=== PATIENT | male | born 1965 | race Caucasian/White ===

== ENCOUNTER 2020-09-19 07:47 | Observation (INO) | payer BC ==
[2020-09-19] MEDS ORDERED: Labetalol 20 MG/4 ML Syringe IVPUSH ONE ×2 (08:03→08:54)
[2020-09-19 08:20] LABS: PTT,PARTIAL THROMBOPLSTIN TIME 25.1 SEC (24.5-32.8)
[2020-09-19 08:32] LABS: CHLORIDE,CL 105 mmol/L (98-107); SODIUM,NA 142 mmol/L (136-145)
[2020-09-19] MEDS ORDERED: Sodium Chloride 0.9% 10 ML Syringe FLUSH PRN (08:56)
--- NOTE | 2020-09-19 09:45 | EDM.PDOC ---
ED HPI GENERAL MEDICAL PROBLEM - General Chief Complaint: Chest Pain Stated Complaint: Chest Pain Time Seen by Provider: 09/19/20 08:20 Source of Information: Reports: Patient, Other ([facility] nurse/EMS) History Limitations: Reports: No Limitations - History of Present Illness INITIAL COMMENTS - FREE TEXT/NARRATIVE: Patient sent to ER for evaluation of left sided chest pain. Started shortly before 6am. Last time he had similar chest pain was 5 years ago. 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 Had some diaphoresis with pain. No nausea or SOB. No radiation of pain. Was placed on oxygen. O2 sats improved from 94% to 99%. Received 4 baby aspirin. [facility] by [facility] as appearing sweaty/fidgety/feliciano in color. Pulse weak in 80s-90s Received single Nitro from EMS with goal of reducing BP. Patient was pain-free at that time. Patient is smoker. Was off BP meds for approx 2.5 years due to being unemployed and uncovered by insurance. Only restarted them a week ago after being seen by Michelle at [facility]. Discussed smoking cessation at that time too. Originally from [place]. Moved in with his brother and [id number] and started employment at [facility] [employer] [facility]. Had recent increased stress over the weekend due to ex- (in process of divorce) coming to [place] and trying to convince patient that they should get back together. He had his special needs son living here in [place] who is special needs/causes stress and son went back to [place] with estranged . Sister in law says patient took his BP last night on a home BP machine and it was over 200 systolic. Treatments [employer]: Reports: Aspirin - Related Data Allergies Allergy/AdvReac Type Severity Reaction Status Date / Time No Known Allergies Allergy Verified 09/19/20 07:55 Home Meds: Home Meds Aspirin 81 mg PO DAILY 09/19/20 [History] Metoprolol Tartrate 25 mg PO Q12HR 09/19/20 [History] Past Medical History Cardiovascular History: Reports: Hypertension, [place], Stents, Other (See Below) Other Cardiovascular History: stent x 1 approx. 5 years ago. Genitourinary History: Reports: Renal Calculus - Past Surgical History Musculoskeletal Surgical History: Reports: None Social & Family History - Tobacco Use Tobacco Use Status *Q: Current Every Day Tobacco User Years of Tobacco use: 41 Packs/Tins Daily: 1.5 - Caffeine Use Caffeine Use: Reports: Coffee, Soda - Alcohol Use Days Per Week of Alcohol Use: 2 Number of Drinks Per Day: 2 Total Drinks Per Week: 4 Alcohol Use Comment: drinks only on weekend - Recreational Drug Use Recreational Drug Use: No ED ROS GENERAL - Review of Systems Review Of Systems: Comprehensive ROS is negative, except as noted in HPI. ED EXAM, GENERAL - Physical Exam Exam: See Below Exam Limited By: No Limitations General Appearance: Alert, WD/WN, No Apparent Distress Eye Exam: Bilateral Eye: EOMI, PERRL Ears: Normal External Exam, Normal Canal, Hearing Grossly Normal Nose: No: Nasal Deformity, Nasal Swelling, Nasal Drainage Throat/Mouth: Normal Lips, Normal Voice, No Airway Compromise Head: Atraumatic, Normocephalic Neck: Normal Inspection, Supple, Non-Tender, Full Range of Motion. No: Lymphadenopathy (L), Lymphadenopathy (R) Respiratory/Chest: No Respiratory Distress, Lungs Clear, Normal Breath Sounds, No Accessory Muscle Use, Chest Non-Tender Cardiovascular: Normal Peripheral Pulses, Regular Rate, Rhythm, No Edema, No Murmur GI/Abdominal: Normal Bowel Sounds, Soft, Non-Tender, No Distention (Male) Exam: Deferred Rectal (Males) Exam: Deferred Back Exam: Normal Inspection. No: CVA Tenderness (L), CVA Tenderness (R), Muscle Spasm Extremities: Normal Inspection, Normal Range of Motion, Non-Tender, No Pedal Edema, Normal Capillary Refill Neurological: Alert, Oriented, CN II-XII Intact, Normal Cognition, Normal Gait, No Motor/Sensory Deficits Psychiatric: Normal Affect, Normal Mood Skin Exam: Warm, Dry, Intact, Normal Color #1 Interpretation EKG Date: 09/19/20 Time: 07:55 Rhythm: NSR Rate (Beats/Min): 77 [place]: Normal P-Wave: Present QRS: Other (increased amplitute suggests LVH) ST-T: Other (Overall unremarkable except for mild morphology change V1) QT: Normal Comparison: NA - No Prior EKG Course - Vital Signs Last Recorded V/S: Last Vital Signs Temp 36.7 C 09/19/20 08:00 Pulse 67 09/19/20 09:34 Resp 16 09/19/20 09:34 BP 156/105 H 09/19/20 09:34 Pulse Ox 97 09/19/20 09:34 - Orders/Labs/Meds Orders: Active Orders 24 hr Category Date Time Status Cardiac Monitoring [RC] . DIRECTED Care 09/19/20 08:55 Active EKG Documentation Completion [RC] ASDIRECTED Care 09/19/20 07:58 Active Peripheral IV Care [RC] . DIRECTED Care 09/19/20 08:56 Active Chest 2V [CR] Stat Exams 09/19/20 08:01 Taken Sodium Chloride 0.9% [Saline Flush] Med 09/19/20 08:56 Active 10 ml FLUSH ASDIRECTED PRN Peripheral IV Insertion Adult [OM.PC] Routine Oth 09/19/20 08:56 Ordered Medication Orders Sodium Chloride (Sodium Chloride 0.9% 10 Ml Syringe) 10 ml FLUSH ASDIRECTED PRN PRN Reason: Keep Vein Open Last Admin: 09/19/20 08:58 Dose: 10 ml Documented by: NELDA Labs: Laboratory Tests 09/19/20 09/19/20 09/19/20 Range/Units 08:03 08:03 08:03 WBC 6.5 (4.0-10.2) K/uL RBC 5.14 (4.33-5.41) M/uL Hgb 14.9 (13.1-16.8) g/dL Hct 45.5 (39.0-49.0) % MCV 88.5 (84.0-98.0) fL MCH 29.0 (28.2-33.3) pg MCHC 32.7 (31.7-36.0) g/dL RDW 14.3 H (11.2-14.1) % Plt Count 217 (150-350) K/uL Neut % (Auto) 69.2 (45.0-80.0) % Lymph % (Auto) 20.4 (10.0-50.0) % [place] % (Auto) 7.4 (2.0-14.0) % Eos % (Auto) 2.8 (0.0-5.0) % Baso % (Auto) 0.2 (0.0-2.0) % Neut # (Auto) 4.48 (1.40-7.00) K/uL Lymph # (Auto) 1.32 (0.50-3.50) K/uL [place] # (Auto) 0.48 (0.00-1.00) K/uL Eos # (Auto) 0.18 (0.00-0.50) K/uL Baso # (Auto) 0.01 (0.00-0.20) K/uL PT (9.5-12.0) SEC INR APTT (24.5-32.8) SEC D-Dimer, Quantitative (0-400) ng/mL Sodium 142 (136-145) mmol/L Potassium 3.9 (3.5-5.1) mmol/L Chloride 105 (98-107) mmol/L Carbon Dioxide 27.6 (21.0-32.0) mmol/L BUN 13 (7-18) mg/dL Creatinine 1.22 H (0.51-1.17) mg/dL Est Cr Clr Drug Dosing TNP Estimated GFR (MDRD) > 60 mL/min Glucose 80 (70-99) mg/dL Lactic Acid 1.0 (0.4-2.0) mmol/L Calcium 8.0 L (8.5-10.1) mg/dL Magnesium 2.2 (1.8-2.4) mg/dL Total Bilirubin 0.4 (0.2-1.0) mg/dL AST 53 H (15-37) U/L ALT 72 (12-78) U/L Alkaline Phosphatase 106 (46-116) IU/L Creatine Kinase 498 H (26-308) U/L Creatine Kinase Index 0.9 (0.0-2.5) % CK-MB (CK-2) 4.70 H* (0.00-3.60) ng/mL Troponin I 0.007 (0.000-0.056) ng/mL NT-Pro-B Natriuret Pep 469 H (0-125) pg/mL Total Protein 7.4 (6.4-8.2) g/dL Albumin 3.8 (3.4-5.0) g/dL 09/19/20 09/19/20 Range/Units 08:03 08:03 WBC (4.0-10.2) K/uL RBC (4.33-5.41) M/uL Hgb (13.1-16.8) g/dL Hct (39.0-49.0) % MCV (84.0-98.0) fL MCH (28.2-33.3) pg MCHC (31.7-36.0) g/dL RDW (11.2-14.1) % Plt Count (150-350) K/uL Neut % (Auto) (45.0-80.0) % Lymph % (Auto) (10.0-50.0) % [place] % (Auto) (2.0-14.0) % Eos % (Auto) (0.0-5.0) % Baso % (Auto) (0.0-2.0) % Neut # (Auto) (1.40-7.00) K/uL Lymph # (Auto) (0.50-3.50) K/uL [place] # (Auto) (0.00-1.00) K/uL Eos # (Auto) (0.00-0.50) K/uL Baso # (Auto) (0.00-0.20) K/uL PT 9.6 (9.5-12.0) SEC INR 1.0 APTT 25.1 (24.5-32.8) SEC D-Dimer, Quantitative 172 (0-400) ng/mL Sodium (136-145) mmol/L Potassium (3.5-5.1) mmol/L Chloride (98-107) mmol/L Carbon Dioxide (21.0-32.0) mmol/L BUN (7-18) mg/dL Creatinine (0.51-1.17) mg/dL Est Cr Clr Drug Dosing Estimated GFR (MDRD) mL/min Glucose (70-99) mg/dL Lactic Acid (0.4-2.0) mmol/L Calcium (8.5-10.1) mg/dL Magnesium (1.8-2.4) mg/dL Total Bilirubin (0.2-1.0) mg/dL AST (15-37) U/L ALT (12-78) U/L Alkaline Phosphatase (46-116) IU/L Creatine Kinase (26-308) U/L Creatine Kinase Index (0.0-2.5) % CK-MB (CK-2) (0.00-3.60) ng/mL Troponin I (0.000-0.056) ng/mL NT-Pro-B Natriuret Pep (0-125) pg/mL Total Protein (6.4-8.2) g/dL Albumin (3.4-5.0) g/dL Meds: Medications Generic Name Dose Route Start Last Admin Trade Name Alexey PRN Reason Stop Dose Admin Sodium Chloride 10 ml 09/19/20 08:56 09/19/20 08:58 Sodium Chloride 0.9% 10 Ml Syringe FLUSH 10 ml ASDIRECTED PRN Administration Keep Vein Open Discontinued Medications Generic Name Dose Route Start Last Admin Trade Name Alexey PRN Reason Stop Dose Admin Labetalol HCl 20 mg 09/19/20 08:03 09/19/20 08:07 Labetalol 20 Mg/4 Ml Syringe IVPUSH 09/19/20 08:04 20 mg ONETIME ONE Administration Protocol Labetalol HCl 20 mg 09/19/20 08:54 09/19/20 08:57 Labetalol 20 Mg/4 Ml Syringe IVPUSH 09/19/20 08:55 20 mg ONETIME ONE Administration Protocol - Radiology Interpretation Free Text/Narrative:: Chest xray unremarkable. - Re-Assessments/Exams Free Text/Narrative Re-Assessment/Exam: 09/19/20 10:01 Patient remained pain-free in ER. Received Labetolol for BP. Ck and CKMB elevated. Troponin normal. Call placed to [facility]. Reviewed patient with Cardiology/Jayson GROSSMAN. He did not feel that patient needs transfer to higher LOC at this time and can instead be admitted observation here at our facility. He did indicate that pt needs to be seen by Cardiology as outpatient if r/o W[place] workup is normal. Patient likely needs updated cardiac cath study. Departure - Departure Time of Disposition: 09:38 Disposition: Refer to Observation Clinical Impression: Chest pain Qualifiers: Chest pain type: unspecified Qualified Code(s): R07.9 - Chest pain, unspecified - Discharge Information *PRESCRIPTION DRUG MONITORING PROGRAM REVIEWED*: Not Applicable *COPY OF PRESCRIPTION DRUG MONITORING REPORT IN PATIENT SIDRA: Not Applicable Referrals: Zara Santiago PA [Primary Care Provider] - Sepsis Event Note (ED) - Evaluation Sepsis Screening Result: No Definite Risk - Focused Exam Vital Signs: Vital Signs Temp Pulse Resp BP Pulse Ox 09/19/20 09:34 67 16 156/105 H 97 03/24/21 09:20 72 21 H 137/98 H 97 09/19/20 09:05 70 18 144/93 H 97 09/19/20 08:51 73 20 154/106 H 98 09/19/20 08:36 73 20 160/102 H 97 09/19/20 08:22 74 18 161/109 H 98 09/19/20 08:15 78 16 149/109 H 99 09/19/20 08:00 36.7 C 78 20 171/112 H 97 - Problem List & Annotations (1) Chest pain SNOMED Code(s): 65037697 Code(s): R07.9 - CHEST PAIN, UNSPECIFIED Status: Acute Priority: High Current Visit: Yes Onset Date: 09/19/20 Annotation/Comment:: Left sided chest pain without associated radiation of pain. Resolved when placed on oxygen. Initial troponin negative and EKG overall unremarkable. Reviewed patient with , Deputy K 9 at [facility]. OK to admit observation here for serial troponins. If workup is negative, he recommends setting up Cardiology consult and angiogram as outpatient. Qualifiers: Chest pain type: unspecified Qualified Code(s): R07.9 - Chest pain, unspecified (2) CAD (coronary artery disease) SNOMED Code(s): 88476150 Code(s): I25.10 - ATHSCL HEART DISEASE OF [place] CORONARY ARTERY W/O ANG PCTRS Status: Chronic Priority: High Current Visit: Yes Annotation/Comment:: History of WY approximately 5 years ago which required stent. Qualifiers: [place] vs. transplanted heart: [place] heart Associated angina: angina presence unspecified (3) Smoker SNOMED Code(s): 58136825 Code(s): F17.200 - NICOTINE DEPENDENCE, UNSPECIFIED, UNCOMPLICATED Status: Chronic Priority: Medium Current Visit: Yes Annotation/Comment:: 3/4 pack a day smoker. Is working with primary provider regarding smoking cessation. (4) HTN (hypertension) SNOMED Code(s): 18169608 Code(s): I10 - ESSENTIAL (PRIMARY) HYPERTENSION Status: Chronic Priority: High Current Visit: Yes Annotation/Comment:: History of HTN that required multiple medications for good control in past. Was off of them for 2 1/2 years due to lack of insurance coverage. Restarted on Metoprolol last week. Significantly elevated when checked last night at home. At [facility] today noted to be 223/141 and 206/140. Labetalol given in ER with good improvement. Observe trends closely. Qualifiers: Hypertension type: essential hypertension Qualified Code(s): I10 - Essential (primary) hypertension - Problem List Review Problem List Initiated/Reviewed/Updated: Yes - My Orders Last 24 Hours: My Active Orders 09/19/20 07:58 EKG Documentation Completion [RC] ASDIRECTED 09/19/20 08:01 Chest 2V [CR] Stat 09/19/20 08:55 Cardiac Monitoring [RC] . DIRECTED 09/19/20 08:56 Peripheral IV Care [RC] . DIRECTED Sodium Chloride 0.9% [Saline Flush] 10 ml FLUSH ASDIRECTED PRN Peripheral IV Insertion Adult [OM.PC] Routine - Assessment/Plan Admission H&P: Please use this note as an admission H&P Last 24 Hours: My Active Orders 09/19/20 07:58 EKG Documentation Completion [RC] ASDIRECTED 09/19/20 08:01 Chest 2V [CR] Stat 09/19/20 08:55 Cardiac Monitoring [RC] . DIRECTED 09/19/20 08:56 Peripheral IV Care [RC] . DIRECTED Sodium Chloride 0.9% [Saline Flush] 10 ml FLUSH ASDIRECTED PRN Peripheral IV Insertion Adult [OM.PC] Routine Assessment:: as above Plan: as above. Stable and suitable for general supervision. Serial Troponins/Telemetry upon admission. to assume care in AM.
[2020-09-19] MEDS ORDERED: Nitroglycerin 0.4 MG Tab.SL SL PRN (10:00)
[2020-09-19] MEDS ORDERED: Acetaminophen 325 MG Tab PO PRN (10:00)
[2020-09-19] MEDS ORDERED: Metoprolol Tartrate 50 MG Tab PO ONE (10:14)
[2020-09-19] MEDS ORDERED: cloNIDine 0.1 MG Tab PO ONE ×2 (10:18→16:57)
[2020-09-19] MEDS ORDERED: Hydrochlorothiazide 25 MG Tab PO ONE (10:25)
[2020-09-19] MEDS ORDERED: Losartan 50 MG Tab PO SCH (10:30)
[2020-09-19] MEDS: Nicotine 21 MG/24 Hr Patch TRDERM SCH (12:39)
--- NOTE | 2020-09-19 15:09 | PCM.SN.2 ---
- Free Text/Narrative Note: Recheck of troponin and EKG at 1400 show no changes. Patient had brief left sided chest pain that was reproduced by palpation over left anterior chest. Resolved on own. EKG at 13:47 showed NSR with similar morphology as one from 0800.
[2020-09-19] MEDS ORDERED: FLU Vacc QS2020-21 36MOS UP/PF 60 MCG/0.5 ML Syringe IM ONE (21:00)
--- NOTE | 2020-09-19 22:48 | PCM.SN.2 ---
- Free Text/Narrative Note: Metoprolol discontinued as it is not a first line agent for hypertension. Combination of Clonidine, Losartan, and HCTZ used after Obs admission. Patient's most recent BP at 1999 of 149/98 is best BP obtained so far during stay.
[2020-09-20] MEDS ORDERED: Losartan 50 MG Tab PO ONE (06:09)
[2020-09-20] MEDS ORDERED: cloNIDine 0.1 MG Tab PO ONE (06:10)
[2020-09-20 07:44] LABS: CHLORIDE,CL 105 mmol/L (98-107); SODIUM,NA 140 mmol/L (136-145)
[2020-09-20] MEDS: Nicotine 21 MG/24 Hr Patch TRDERM SCH (07:58)
[2020-09-20] MEDS ORDERED: Metoprolol Succinate 25 MG Tab.ER PO SCH (08:00)
[2020-09-20] MEDS ORDERED: Hydrochlorothiazide 25 MG Tab PO SCH (08:00)
[2020-09-20] MEDS ORDERED: Losartan 50 MG Tab PO SCH (08:00)
[2020-09-20] MEDS ORDERED: Remove Patch NICOTINE PATCH TRDERM SCH (08:00)
[2020-09-20] MEDS ORDERED: cloNIDine 0.1 MG Tab PO SCH (08:00)
[2020-09-20 09:51] LABS: HEMOGLOBIN A1C 5.6 % (4.3-5.7)
--- NOTE | 2020-09-20 09:53 | PCM.DCSUM1 ---
Discharge Summary - Hospital Course HPI Initial Comments: See emergency room note/mention H&P Brief History: See emergency room note/mention H&P Diagnosis: Stroke: No Modified Houston Scale: No Symptoms at All Modified Houston Scale Score: 0 - Discharge Data Discharge Date: 09/20/20 Discharge Disposition: DC/Tfer to Acute Hospital 02 Condition: Fair - Referral to Home Health Primary Care Physician: SANDRO Burrell - Discharge Diagnosis/Problem(s) (1) CAD (coronary artery disease) SNOMED Code(s): 19366563 ICD Code: I25.10 - ATHSCL HEART DISEASE OF [place] CORONARY ARTERY W/O ANG PCTRS Status: Chronic Priority: High Current Visit: Yes Problem Details: Telephone consultation at 9:[address] Anderson, hospitalist at [facility], who does accept the patient for direct admission and further cardiac work-up and cardiology consultation, with no further treatment recommendations given. Refractory coronary artery disease with breakthrough chest pain and anginal episodes at about 1 PM yesterday and between 46 AM this morning with clonidine given at that time. Note new progressive inferior wall EKG changes, including progression of his nonspecific ST changes and T wave inversion into lead 2 as below. No chest pain or anginal type symptoms prior to discharge with stable/improved vital signs and clinical exam prior to patient's transfer. Ambulance transfer with strap buckler accompaniment. Note some delay in patient transfer without sequelae secondary to need for COVID-19 test, which was negative, etc. prior to transfer. Patient does have a history of RI and PTCA/stent x1 approximately 5 years ago. He is a somewhat poor historian. Multiple risk factors including male sex, tobacco use, and strong family history with his paternal grandfather, father, and one paternal uncle with fatal MIs all prior to their 50th birthday. He does not know his cholesterol status, which could not be conducted this morning secondary to his n.p.o. status. Glycosylated hemoglobin was performed this morning with level of 5.6% on 09/20 despite mildly elevated glucose this morning. Patient is agreement to heart catheterization and lifting of his previous NO CODE STATUS with patient full code at this time. Chest pain protocol was initiated immediately upon patient's arrival to the emergency room by [facility] physician. Qualifiers: Coronary Disease-Associated Artery/Lesion type: [place] artery [place] vs. transplanted heart: [place] heart Associated angina: with stable angina Qualified Code(s): I25.118 - Atherosclerotic heart disease of [place] coronary artery with other forms of angina pectoris (2) HTN (hypertension) SNOMED Code(s): 51541479 ICD Code: I10 - ESSENTIAL (PRIMARY) HYPERTENSION Status: Chronic Priority: High Current Visit: Yes Problem Details: Significantly refractory hypertension during this hospitalization with maximum blood pressure of 179/109 this morning, however subsequently improved to 131/93 after clonidine was given as below. Multiple medication adjustments required during this hospitalization with patient previously receiving IV Normodyne, oral Lopressor, Cozaar, hydrochlorothiazide, and multiple doses of clonidine, including at about 6 AM this morning. No visual changes, neurological deficits, etc. The patient does have a long history of HTN that required multiple medications for good control in past with previous medication noncompliance during the last 2 1/2 years due to lack of insurance coverage. He did restart Lopressor last week. Significantly elevated blood pressures during his observation status. At [facility] today, where the patient works, his blood pressure was noted to be 223/141 and 206/140 by the [facility] nurse. Labetalol given in ER as above with initial good improvement prior to placement in observation status. Continue to observe closely by accepting providers. Note return of patient's elevated blood pressure shortly prior to patient transfer with Nitropaste therapy initiated both for blood pressure control and as cardiac prophylaxis. Qualifiers: Hypertension type: essential hypertension Qualified Code(s): I10 - Essential (primary) hypertension (3) Elevated CK SNOMED Code(s): 442711221 ICD Code: R74.8 - ABNORMAL LEVELS OF OTHER SERUM ENZYMES Status: Acute Priority: High Current Visit: Yes Onset Date: 09/19/20 Problem Details: CK and CK MB elevation on admission with no evidence of rhabdomyolysis. Note normal cardiac index on admission despite EKG changes as above. CK and CK-MB are normal today. (4) CHF (congestive heart failure) SNOMED Code(s): 91661640 ICD Code: I50.9 - HEART FAILURE, UNSPECIFIED Status: Acute Priority: High Current Visit: Yes Onset Date: 09/20/20 Problem Details: Note borderline CHF by chest x-ray and clinical exam with hydrochlorothiazide in affect. Cardiology consultation by accepting providers with probable heart catheterization versus other cardiac evaluations, including Cardiolite scan, echocardiogram, etc. depending on his clinical course and prior evaluation. Note mild to moderately elevated BNP on admission, which was improved today. Qualifiers: Heart failure type: unspecified Heart failure chronicity: acute Qualified Code(s): I50.9 - Heart failure, unspecified (5) Tobacco abuse counseling SNOMED Code(s): 719781329, 145612993, 814278830 ICD Code: Z71.6 - TOBACCO ABUSE COUNSELING Status: Chronic Priority: Medium Current Visit: Yes Problem Details: Tobacco cessation strongly encouraged with information to be provided at discharge by the accepting providers. (6) Peptic reflux disease SNOMED Code(s): 227215812 ICD Code: K21.9 - GASTRO-ESOPHAGEAL REFLUX DISEASE WITHOUT ESOPHAGITIS Status: Acute Priority: Medium Current Visit: Yes Onset Date: ~09/19/20 Problem Details: Heartburn type symptoms prior to admission. Nonsymptomatic at this time. Further work-up depending on his cardiac status, clinical symptoms, etc. (7) Osteoarthritis SNOMED Code(s): 698660417 ICD Code: M19.90 - UNSPECIFIED OSTEOARTHRITIS, UNSPECIFIED SITE Status: Chronic Priority: Medium Current Visit: Yes Problem Details: Stable by history Qualifiers: Osteoarthritis location: multiple joints Osteoarthritis type: primary Qualified Code(s): M89.49 - Other hypertrophic osteoarthropathy, multiple sites (8) COPD (chronic obstructive pulmonary disease) SNOMED Code(s): 97984250 ICD Code: J44.9 - CHRONIC OBSTRUCTIVE PULMONARY DISEASE, UNSPECIFIED Status: Chronic Priority: Medium Current Visit: Yes Problem Details: COPD by chest x-ray with no current medical therapy. No current tobacco use history as above. Consider PFTs depending on his clinical course. Tobacco cessation encouraged as above. Qualifiers: COPD type: emphysema Emphysema type: panlobular Qualified Code(s): J43.1 - Panlobular emphysema (9) Hypoalbuminemia SNOMED Code(s): 253087324 ICD Code: E88.09 - [facility] DISORDERS OF PLASMA-PROTEIN METABOLISM, NEC Status: Acute Priority: Medium Current Visit: Yes Onset Date: 09/20/20 Problem Details: Observe for now. Normal on admission. (10) LFT elevation SNOMED Code(s): 854702746 ICD Code: R79.89 - OTHER SPECIFIED ABNORMAL FINDINGS OF BLOOD CHEMISTRY Status: Acute Priority: Medium Current Visit: Yes Onset Date: 09/20/20 Problem Details: Possibly secondary to mild CHF. Additional possibility of fatty liver with consideration of fasting lipid profile, further work-up, etc. by accepting providers depending on his clinical course. - Patient Summary/Data Operative Procedure(s) Performed: None Complications: None Consults: Hospitalist as above with probable cardiology consultation by accepting providers. Labs Pending at D/C: Final chest x-ray report from 09/19/2020. Recommended Follow-up Testing/Procedures: Further cardiac work-up as above Planned Operative Procedure(s) after DC: Possible heart catheterization with PT CA/stent placement Hospital Course: Patient was placed in observation status by [facility] physician from the emergency room with persistent breakthrough chest pain and uncontrolled hypertension throughout his hospitalization in this facility. Note progressive inferior wall cardiac changes during this hospitalization requiring hospital transfer as above. No other complications during this hospitalization. - Patient Instructions Diet: NPO Activity: Bedrest Driving: May Drive Today Showering/Bathing: No Showering Notify Provider of: Increased Pain, Nausea and/or Vomiting Other/Special Instructions: Ambulance transfer as above. Patient will be kept n.p.o., although he did have breakfast this morning. - Discharge Plan *PRESCRIPTION DRUG MONITORING PROGRAM REVIEWED*: Not Applicable *COPY OF PRESCRIPTION DRUG MONITORING REPORT IN PATIENT SIDRA: Not Applicable Home Medications: Home Meds Aspirin 81 mg PO DAILY 09/19/20 [History] Metoprolol Tartrate 25 mg PO Q12HR 09/19/20 [History] Oxygen Therapy Mode: Room Air Forms: ED Department Discharge, Interfacility Transfer EMTALA Referrals: Zara Santiago PA [Primary Care Provider] - - Discharge Summary/Plan Comment DC Time >30 min.: Yes (Coordination of care ) Discharge Summary/Plan Comment: As above. Extensive precautions were given to the patient, who is in agreement with the treatment plan. Ambulance transfer to [facility] in [place] as above. - General Info Date of Service: 09/20/20 Subjective Update: Intermittent breakthrough chest pain as above Functional Status: Reports: Pain Controlled, Tolerating Diet, Ambulating, Urinating. Denies: New Symptoms, Incentive Spirometry Numeric/FACES Score: 0 - Review of Systems General: Reports: No Symptoms. Denies: Fever, Weakness, Fatigue, Malaise, Chills, Night Sweats, Appetite (Good at breakfast this morning), Other HEENT: Reports: No Symptoms. Denies: Dysphasia, Ear Pain, Eye Pain, Headaches, Post Nasal Drip, Sinus Congestion, Sore Throat, Rhinitis, Visual Changes Pulmonary: Reports: No Symptoms. Denies: Shortness of Breath, Pleuritic Chest Pain, Cough, Sputum, Hemoptysis, Wheezing Cardiovascular: Reports: Chest Pain (Breakthrough during his swing bed care but not currently). Denies: Palpitations, Dyspnea on Exertion, Orthopnea, PND, Edema, Lightheadedness Gastrointestinal: Reports: No Symptoms, Other (No bowel movement to this point). Denies: Abdominal Pain, Constipation, Decreased Appetite, Diarrhea, Difficulty Swallowing, Flatus, Hematochezia, Melena, Nausea, Vomiting Genitourinary: Reports: No Symptoms. Denies: Dysuria, Frequency, Burning, Pain, Urgency, Incontinence, Hematuria, Retention, Flank Pain Musculoskeletal: Reports: No Symptoms. Denies: Neck Pain, Shoulder Pain, Arm Pain, Back Pain, Leg Pain Skin: Reports: No Symptoms. Denies: Diaphoresis, Bruising Neurological: Reports: No Symptoms. Denies: Confusion, Dizziness, Headache, Numbness, Paresthesia, Pre-Existing Deficit, Seizure, Tingling, Weakness Psychiatric: Reports: No Symptoms. Denies: Confusion, Depression, Anxiety, Agitation, Cravings, Hallucinations - Patient Data Vitals - Most Recent: Last Vital Signs Temp 36.6 C 09/20/20 07:08 Pulse 65 09/20/20 09:00 Resp 14 09/20/20 07:08 BP 131/93 H 09/20/20 09:00 Pulse Ox 97 09/20/20 07:08 Vital Signs - 24 hr 09/19/20 09/19/20 09/19/20 16:00 17:14 20:00 Temperature [ 36.8 C 36.9 C Temporal] Pulse, 69 73 Peripheral [ Pulse Oximetry] Respiratory 14 20 Rate Blood Pressure 152/106 H Blood Pressure [Left Upper Arm ] Blood Pressure 152/106 H 149/98 H [Right Upper Arm] O2 Sat by Pulse 96 94 L Oximetry 09/20/20 09/20/20 09/20/20 00:00 04:00 05:03 Temperature [ 36.3 C 36.2 C Temporal] Pulse, 64 56 L 59 L Peripheral [ Pulse Oximetry] Respiratory 16 16 Rate Blood Pressure Blood Pressure [Left Upper Arm ] Blood Pressure 155/104 H 164/109 H 157/104 H [Right Upper Arm] O2 Sat by Pulse 95 97 Oximetry 09/20/20 09/20/20 09/20/20 06:16 07:08 07:57 Temperature [ 36.6 C Temporal] Pulse, 67 Peripheral [ Pulse Oximetry] Respiratory 14 Rate Blood Pressure 174/114 H 170/109 H Blood Pressure [Left Upper Arm ] Blood Pressure 170/109 H [Right Upper Arm] O2 Sat by Pulse 97 Oximetry 09/20/20 09/20/20 09/20/20 07:59 09:00 11:49 Temperature [ 36.7 C Temporal] Pulse, 65 68 Peripheral [ Pulse Oximetry] Respiratory 16 Rate Blood Pressure 170/109 H Blood Pressure 131/93 H 143/104 H [Left Upper Arm ] Blood Pressure [Right Upper Arm] O2 Sat by Pulse 95 Oximetry Weight - Most Recent: 94.211 kg Imaging Impressions - Last 24 hrs: monitoring tech shows normal sinus rhythm with average heart rate in the 60-70s with no ectopy or arrhythmia. Note occasional borderline bradycardia at time of Normodyne administration. Chest x-ray, PA and lateral, from 09/19/2020 shows evidence of mild pulmonary obstructive disease with probable pulmonary hypertension and/or mild centralized CHF. No significant cardiomegaly with mild prominence of the proximal aortic arch. No pulmonary infiltrates, pneumothorax, etc. Mild osteoarthritic changes in the thoracic spine. Lab Results - Last 24 hrs: Laboratory Results - last 24 hr 09/19/20 09/19/20 09/20/20 Range/Units 13:47 19:26 07:12 WBC (4.0-10.2) K/uL RBC (4.33-5.41) M/uL Hgb (13.1-16.8) g/dL Hct (39.0-49.0) % MCV (84.0-98.0) fL MCH (28.2-33.3) pg MCHC (31.7-36.0) g/dL RDW (11.2-14.1) % Plt Count (150-350) K/uL Neut % (Auto) (45.0-80.0) % Lymph % (Auto) (10.0-50.0) % [place] % (Auto) (2.0-14.0) % Eos % (Auto) (0.0-5.0) % Baso % (Auto) (0.0-2.0) % Neut # (Auto) (1.40-7.00) K/uL Lymph # (Auto) (0.50-3.50) K/uL [place] # (Auto) (0.00-1.00) K/uL Eos # (Auto) (0.00-0.50) K/uL Baso # (Auto) (0.00-0.20) K/uL Sodium (136-145) mmol/L Potassium (3.5-5.1) mmol/L Chloride (98-107) mmol/L Carbon Dioxide (21.0-32.0) mmol/L BUN (7-18) mg/dL Creatinine (0.51-1.17) mg/dL Est Cr Clr Drug Dosing mL/min Estimated GFR (MDRD) mL/min Glucose (70-99) mg/dL Calcium (8.5-10.1) mg/dL Total Bilirubin (0.2-1.0) mg/dL AST (15-37) U/L ALT (12-78) U/L Alkaline Phosphatase (46-116) IU/L Troponin I 0.007 0.003 0.007 (0.000-0.056) ng/mL Total Protein (6.4-8.2) g/dL Albumin (3.4-5.0) g/dL 09/20/20 09/20/20 Range/Units 07:12 07:12 WBC 6.0 (4.0-10.2) K/uL RBC 5.21 (4.33-5.41) M/uL Hgb 15.0 (13.1-16.8) g/dL Hct 45.6 (39.0-49.0) % MCV 87.5 (84.0-98.0) fL MCH 28.8 (28.2-33.3) pg MCHC 32.9 (31.7-36.0) g/dL RDW 13.9 (11.2-14.1) % Plt Count 200 (150-350) K/uL Neut % (Auto) 74.4 (45.0-80.0) % Lymph % (Auto) 15.7 (10.0-50.0) % [place] % (Auto) 6.7 (2.0-14.0) % Eos % (Auto) 3.0 (0.0-5.0) % Baso % (Auto) 0.2 (0.0-2.0) % Neut # (Auto) 4.46 (1.40-7.00) K/uL Lymph # (Auto) 0.94 (0.50-3.50) K/uL [place] # (Auto) 0.40 (0.00-1.00) K/uL Eos # (Auto) 0.18 (0.00-0.50) K/uL Baso # (Auto) 0.01 (0.00-0.20) K/uL Sodium 140 (136-145) mmol/L Potassium 3.8 (3.5-5.1) mmol/L Chloride 105 (98-107) mmol/L Carbon Dioxide 25.5 (21.0-32.0) mmol/L BUN 14 (7-18) mg/dL Creatinine 1.16 (0.51-1.17) mg/dL Est Cr Clr Drug Dosing 78.98 mL/min Estimated GFR (MDRD) > 60 mL/min Glucose 130 H (70-99) mg/dL Calcium 9.0 (8.5-10.1) mg/dL Total Bilirubin 0.4 (0.2-1.0) mg/dL AST 24 (15-37) U/L ALT 52 (12-78) U/L Alkaline Phosphatase 103 (46-116) IU/L Troponin I (0.000-0.056) ng/mL Total Protein 6.7 (6.4-8.2) g/dL Albumin 3.3 L (3.4-5.0) g/dL Laboratory Tests 09/19/20 09/19/20 09/19/20 Range/Units 08:03 08:03 08:03 WBC 6.5 (4.0-10.2) K/uL RBC 5.14 (4.33-5.41) M/uL Hgb 14.9 (13.1-16.8) g/dL Hct 45.5 (39.0-49.0) % MCV 88.5 (84.0-98.0) fL MCH 29.0 (28.2-33.3) pg MCHC 32.7 (31.7-36.0) g/dL RDW 14.3 H (11.2-14.1) % Plt Count 217 (150-350) K/uL Neut % (Auto) 69.2 (45.0-80.0) % Lymph % (Auto) 20.4 (10.0-50.0) % [place] % (Auto) 7.4 (2.0-14.0) % Eos % (Auto) 2.8 (0.0-5.0) % Baso % (Auto) 0.2 (0.0-2.0) % Neut # (Auto) 4.48 (1.40-7.00) K/uL Lymph # (Auto) 1.32 (0.50-3.50) K/uL [place] # (Auto) 0.48 (0.00-1.00) K/uL Eos # (Auto) 0.18 (0.00-0.50) K/uL Baso # (Auto) 0.01 (0.00-0.20) K/uL PT (9.5-12.0) SEC INR APTT (24.5-32.8) SEC D-Dimer, Quantitative (0-400) ng/mL Sodium 142 (136-145) mmol/L Potassium 3.9 (3.5-5.1) mmol/L Chloride 105 (98-107) mmol/L Carbon Dioxide 27.6 (21.0-32.0) mmol/L BUN 13 (7-18) mg/dL Creatinine 1.22 H (0.51-1.17) mg/dL Est Cr Clr Drug Dosing TNP Estimated GFR (MDRD) > 60 mL/min Glucose 80 (70-99) mg/dL Hemoglobin A1c (4.3-5.7) % Lactic Acid 1.0 (0.4-2.0) mmol/L Calcium 8.0 L (8.5-10.1) mg/dL Magnesium 2.2 (1.8-2.4) mg/dL Total Bilirubin 0.4 (0.2-1.0) mg/dL AST 53 H (15-37) U/L ALT 72 (12-78) U/L Alkaline Phosphatase 106 (46-116) IU/L Creatine Kinase 498 H (26-308) U/L Creatine Kinase Index 0.9 (0.0-2.5) % CK-MB (CK-2) 4.70 H* (0.00-3.60) ng/mL Troponin I 0.007 (0.000-0.056) ng/mL NT-Pro-B Natriuret Pep 469 H (0-125) pg/mL Total Protein 7.4 (6.4-8.2) g/dL Albumin 3.8 (3.4-5.0) g/dL SARS-CoV-2 RNA (JESUS) (NEGATIVE) 09/19/20 09/19/20 09/19/20 Range/Units 08:03 08:03 13:47 WBC (4.0-10.2) K/uL RBC (4.33-5.41) M/uL Hgb (13.1-16.8) g/dL Hct (39.0-49.0) % MCV (84.0-98.0) fL MCH (28.2-33.3) pg MCHC (31.7-36.0) g/dL RDW (11.2-14.1) % Plt Count (150-350) K/uL Neut % (Auto) (45.0-80.0) % Lymph % (Auto) (10.0-50.0) % [place] % (Auto) (2.0-14.0) % Eos % (Auto) (0.0-5.0) % Baso % (Auto) (0.0-2.0) % Neut # (Auto) (1.40-7.00) K/uL Lymph # (Auto) (0.50-3.50) K/uL [place] # (Auto) (0.00-1.00) K/uL Eos # (Auto) (0.00-0.50) K/uL Baso # (Auto) (0.00-0.20) K/uL PT 9.6 (9.5-12.0) SEC INR 1.0 APTT 25.1 (24.5-32.8) SEC D-Dimer, Quantitative 172 (0-400) ng/mL Sodium (136-145) mmol/L Potassium (3.5-5.1) mmol/L Chloride (98-107) mmol/L Carbon Dioxide (21.0-32.0) mmol/L BUN (7-18) mg/dL Creatinine (0.51-1.17) mg/dL Est Cr Clr Drug Dosing Estimated GFR (MDRD) mL/min Glucose (70-99) mg/dL Hemoglobin A1c (4.3-5.7) % Lactic Acid (0.4-2.0) mmol/L Calcium (8.5-10.1) mg/dL Magnesium (1.8-2.4) mg/dL Total Bilirubin (0.2-1.0) mg/dL AST (15-37) U/L ALT (12-78) U/L Alkaline Phosphatase (46-116) IU/L Creatine Kinase (26-308) U/L Creatine Kinase Index (0.0-2.5) % CK-MB (CK-2) (0.00-3.60) ng/mL Troponin I 0.007 (0.000-0.056) ng/mL NT-Pro-B Natriuret Pep (0-125) pg/mL Total Protein (6.4-8.2) g/dL Albumin (3.4-5.0) g/dL SARS-CoV-2 RNA (JESUS) (NEGATIVE) 09/19/20 09/20/20 09/20/20 Range/Units 19:26 07:12 07:12 WBC (4.0-10.2) K/uL RBC (4.33-5.41) M/uL Hgb (13.1-16.8) g/dL Hct (39.0-49.0) % MCV (84.0-98.0) fL MCH (28.2-33.3) pg MCHC (31.7-36.0) g/dL RDW (11.2-14.1) % Plt Count (150-350) K/uL Neut % (Auto) (45.0-80.0) % Lymph % (Auto) (10.0-50.0) % [place] % (Auto) (2.0-14.0) % Eos % (Auto) (0.0-5.0) % Baso % (Auto) (0.0-2.0) % Neut # (Auto) (1.40-7.00) K/uL Lymph # (Auto) (0.50-3.50) K/uL [place] # (Auto) (0.00-1.00) K/uL Eos # (Auto) (0.00-0.50) K/uL Baso # (Auto) (0.00-0.20) K/uL PT (9.5-12.0) SEC INR APTT (24.5-32.8) SEC D-Dimer, Quantitative (0-400) ng/mL Sodium 140 (136-145) mmol/L Potassium 3.8 (3.5-5.1) mmol/L Chloride 105 (98-107) mmol/L Carbon Dioxide 25.5 (21.0-32.0) mmol/L BUN 14 (7-18) mg/dL Creatinine 1.16 (0.51-1.17) mg/dL Est Cr Clr Drug Dosing 78.98 Estimated GFR (MDRD) > 60 mL/min Glucose 130 H (70-99) mg/dL Hemoglobin A1c (4.3-5.7) % Lactic Acid (0.4-2.0) mmol/L Calcium 9.0 (8.5-10.1) mg/dL Magnesium (1.8-2.4) mg/dL Total Bilirubin 0.4 (0.2-1.0) mg/dL AST 24 (15-37) U/L ALT 52 (12-78) U/L Alkaline Phosphatase 103 (46-116) IU/L Creatine Kinase (26-308) U/L Creatine Kinase Index (0.0-2.5) % CK-MB (CK-2) (0.00-3.60) ng/mL Troponin I 0.003 0.007 (0.000-0.056) ng/mL NT-Pro-B Natriuret Pep (0-125) pg/mL Total Protein 6.7 (6.4-8.2) g/dL Albumin 3.3 L (3.4-5.0) g/dL SARS-CoV-2 RNA (JESUS) (NEGATIVE) 09/20/20 09/20/20 09/20/20 Range/Units 07:12 07:12 07:12 WBC 6.0 (4.0-10.2) K/uL RBC 5.21 (4.33-5.41) M/uL Hgb 15.0 (13.1-16.8) g/dL Hct 45.6 (39.0-49.0) % MCV 87.5 (84.0-98.0) fL MCH 28.8 (28.2-33.3) pg MCHC 32.9 (31.7-36.0) g/dL RDW 13.9 (11.2-14.1) % Plt Count 200 (150-350) K/uL Neut % (Auto) 74.4 (45.0-80.0) % Lymph % (Auto) 15.7 (10.0-50.0) % [place] % (Auto) 6.7 (2.0-14.0) % Eos % (Auto) 3.0 (0.0-5.0) % Baso % (Auto) 0.2 (0.0-2.0) % Neut # (Auto) 4.46 (1.40-7.00) K/uL Lymph # (Auto) 0.94 (0.50-3.50) K/uL [place] # (Auto) 0.40 (0.00-1.00) K/uL Eos # (Auto) 0.18 (0.00-0.50) K/uL Baso # (Auto) 0.01 (0.00-0.20) K/uL PT (9.5-12.0) SEC INR APTT (24.5-32.8) SEC D-Dimer, Quantitative (0-400) ng/mL Sodium (136-145) mmol/L Potassium (3.5-5.1) mmol/L Chloride (98-107) mmol/L Carbon Dioxide (21.0-32.0) mmol/L BUN (7-18) mg/dL Creatinine (0.51-1.17) mg/dL Est Cr Clr Drug Dosing Estimated GFR (MDRD) mL/min Glucose (70-99) mg/dL Hemoglobin A1c 5.6 (4.3-5.7) % Lactic Acid (0.4-2.0) mmol/L Calcium (8.5-10.1) mg/dL Magnesium (1.8-2.4) mg/dL Total Bilirubin (0.2-1.0) mg/dL AST (15-37) U/L ALT (12-78) U/L Alkaline Phosphatase (46-116) IU/L Creatine Kinase 245 (26-308) U/L Creatine Kinase Index 1.1 (0.0-2.5) % CK-MB (CK-2) 2.60 (0.00-3.60) ng/mL Troponin I (0.000-0.056) ng/mL NT-Pro-B Natriuret Pep 208 H (0-125) pg/mL Total Protein (6.4-8.2) g/dL Albumin (3.4-5.0) g/dL SARS-CoV-2 RNA (JESUS) (NEGATIVE) 09/20/20 Range/Units 10:10 WBC (4.0-10.2) K/uL RBC (4.33-5.41) M/uL Hgb (13.1-16.8) g/dL Hct (39.0-49.0) % MCV (84.0-98.0) fL MCH (28.2-33.3) pg MCHC (31.7-36.0) g/dL RDW (11.2-14.1) % Plt Count (150-350) K/uL Neut % (Auto) (45.0-80.0) % Lymph % (Auto) (10.0-50.0) % [place] % (Auto) (2.0-14.0) % Eos % (Auto) (0.0-5.0) % Baso % (Auto) (0.0-2.0) % Neut # (Auto) (1.40-7.00) K/uL Lymph # (Auto) (0.50-3.50) K/uL [place] # (Auto) (0.00-1.00) K/uL Eos # (Auto) (0.00-0.50) K/uL Baso # (Auto) (0.00-0.20) K/uL PT (9.5-12.0) SEC INR APTT (24.5-32.8) SEC D-Dimer, Quantitative (0-400) ng/mL Sodium (136-145) mmol/L Potassium (3.5-5.1) mmol/L Chloride (98-107) mmol/L Carbon Dioxide (21.0-32.0) mmol/L BUN (7-18) mg/dL Creatinine (0.51-1.17) mg/dL Est Cr Clr Drug Dosing Estimated GFR (MDRD) mL/min Glucose (70-99) mg/dL Hemoglobin A1c (4.3-5.7) % Lactic Acid (0.4-2.0) mmol/L Calcium (8.5-10.1) mg/dL Magnesium (1.8-2.4) mg/dL Total Bilirubin (0.2-1.0) mg/dL AST (15-37) U/L ALT (12-78) U/L Alkaline Phosphatase (46-116) IU/L Creatine Kinase (26-308) U/L Creatine Kinase Index (0.0-2.5) % CK-MB (CK-2) (0.00-3.60) ng/mL Troponin I (0.000-0.056) ng/mL NT-Pro-B Natriuret Pep (0-125) pg/mL Total Protein (6.4-8.2) g/dL Albumin (3.4-5.0) g/dL SARS-CoV-2 RNA (JESUS) Negative (NEGATIVE) TANIKA Results - Last 24 hrs: None Med Orders - Current: Current Medications Acetaminophen (Acetaminophen 325 Mg Tab) 650 mg PO Q4H PRN PRN Reason: Pain (Mild 1-3)/fever Last Admin: 09/19/20 19:08 Dose: 650 mg Documented by: Clonidine HCl (Clonidine 0.1 Mg Tab) 0.1 mg PO DAILY [facility] Last Admin: 09/20/20 07:57 Dose: 0.1 mg Documented by: Hydrochlorothiazide (Hydrochlorothiazide 25 Mg Tab) 12.5 mg PO DAILY [facility] Last Admin: 09/20/20 07:57 Dose: 12.5 mg Documented by: Losartan Potassium (Losartan 50 Mg Tab) 50 mg PO BID [facility] Last Admin: 09/20/20 07:59 Dose: 50 mg Documented by: Miscellaneous Information (Remove Patch Nicotine Patch) 1 ea TRDERM DAILY [facility] Last Admin: 09/20/20 08:01 Dose: 1 ea Documented by: Nicotine (Nicotine 21 Mg/24 Hr Patch) 21 mg TRDERM DAILY [facility] Last Admin: 09/20/20 07:58 Dose: 21 mg Documented by: Nitroglycerin (Nitroglycerin 0.4 Mg Tab.Sl) 0.4 mg SL Q5M PRN PRN Reason: Chest Pain Sodium Chloride (Sodium Chloride 0.9% 10 Ml Syringe) 10 ml FLUSH ASDIRECTED PRN PRN Reason: Keep Vein Open Last Admin: 09/19/20 08:58 Dose: 10 ml Documented by: Discontinued Medications Clonidine HCl (Clonidine 0.1 Mg Tab) 0.1 mg PO ONETIME ONE Stop: 09/19/20 10:19 Last Admin: 09/19/20 10:39 Dose: Not Given Documented by: Clonidine HCl (Clonidine 0.1 Mg Tab) 0.1 mg PO ONETIME ONE Stop: 09/19/20 16:58 Last Admin: 09/19/20 17:14 Dose: 0.1 mg Documented by: Clonidine HCl (Clonidine 0.1 Mg Tab) 0.1 mg PO ONETIME ONE Stop: 09/20/20 06:11 Last Admin: 09/20/20 06:16 Dose: 0.1 mg Documented by: Hydrochlorothiazide (Hydrochlorothiazide 25 Mg Tab) 12.5 mg PO ONETIME ONE Stop: 09/19/20 10:26 Last Admin: 09/19/20 10:40 Dose: 12.5 mg Documented by: Influenza Virus Vaccine (Pharmacy To Dose - Influenza Vaccine) 1 each IM ONETIME ONE Stop: 09/19/20 11:01 Influenza Virus Vaccine (Flu Vacc [id number] 36mos Up/Pf 60 Mcg/0.5 Ml Syringe) 60 mcg IM .ONCE ONE Stop: 09/19/20 21:01 Last Admin: 09/19/20 20:07 Dose: 60 mcg Documented by: Labetalol HCl (Labetalol 20 Mg/4 Ml Syringe) 20 mg IVPUSH ONETIME ONE; Protocol Stop: 09/19/20 08:04 Last Admin: 09/19/20 08:07 Dose: 20 mg Documented by: Labetalol HCl (Labetalol 20 Mg/4 Ml Syringe) 20 mg IVPUSH ONETIME ONE; Protocol Stop: 09/19/20 08:55 Last Admin: 09/19/20 08:57 Dose: 20 mg Documented by: Losartan Potassium (Losartan 50 Mg Tab) 50 mg PO DAILY [facility] Last Admin: 09/19/20 10:40 Dose: 50 mg Documented by: Losartan Potassium (Losartan 50 Mg Tab) 50 mg PO ONETIME ONE Stop: 09/20/20 06:10 Last Admin: 09/20/20 06:16 Dose: 50 mg Documented by: Metoprolol Succinate (Metoprolol Succinate 25 Mg Tab.Er) 25 mg PO DAILY [facility] Metoprolol Tartrate (Metoprolol Tartrate 50 Mg Tab) 50 mg PO ONETIME ONE Stop: 09/19/20 10:15 Last Admin: 09/19/20 11:19 Dose: Not Given Documented by: - Exam Quality Assessment: Reports: DVT Prophylaxis. Denies: Supplemental Oxygen, Central Line/PICC, Urine Catheter, Skin Breakdown, Restraints General: Reports: Alert, Oriented, Cooperative, No Acute Distress HEENT: Reports: Pupils Equal, Pupils Reactive, EOMI, Mucous Membr. Moist/[place]. Denies: Scleral Icterus Neck: Reports: Supple, Trachea Midline, No JVD, No Thyromegaly, +2 Carotid Pulse wo Bruit. Denies: Lymphadenopathy Lungs: Reports: Normal Respiratory Effort, Rales (Mild bilateral basilar). Denies: Rhonchi, Rub, Wheezing Cardiovascular: Reports: Regular Rate, Regular Rhythm, No Murmurs. Denies: Gallops, Rubs GI/Abdominal Exam: Normal Bowel Sounds, Soft, Non-Tender, No Organomegaly, No Distention, No Abnormal Bruit, No Mass. No: Guarding (Male) Exam: Deferred Rectal (Males) Exam: Deferred Back Exam: Reports: Normal Inspection, Full Range of Motion. Denies: CVA Tenderness (L), CVA Tenderness (R), Muscle Spasm Extremities: Normal Inspection, Normal Range of Motion, Non-Tender, No Pedal Edema, Normal Capillary Refill. No: Jey's Sign Skin: Reports: Warm, Dry, Intact. Denies: Ecchymosis Neurological: Reports: No New Focal Deficit, Other (Negative Babinski's) Psy/Mental Status: Reports: Alert, Normal Affect, Normal Mood. Denies: Agitated, Hallucinations, Withdrawal Symptoms #1 Interpretation EKG Date: 09/20/20 Time: 07:25 Rhythm: NSR Rate (Beats/Min): 61 [place]: Normal (Left) P-Wave: Present QRS: Normal (0.09 seconds) ST-T: Other (Progressive nonspecific ST changes and T wave inversions in leads II and aVF with progression into lead II since repeat EKG at 1:47 PM on 07/22/2020) OK/PQ Interval: 0.19 seconds Comparison: Change From Previous EKG (As above) EKG Interpretation Comments: 1. Progressive inferior wall cardiac ischemia
[2020-09-20] MEDS ORDERED: Nitroglycerin 2% Oint 1 GM UD Packet TOP ONE (11:51)
== END 2020-09-20 12:25 ==
LOC: SUPCPDRO 07:55 → LL.ED 07:55 → LL.MS 09:30
PROVIDERS: ADMIT Emergency Medicine; ATTEND Family Medicine
DX: I25.118 Atherosclerotic heart disease of native coronary artery with other forms of angina pectoris (principal); I21.19 ST elevation (STEMI) myocardial infarction involving other coronary artery of inferior wall; R74.8 Abnormal levels of other serum enzymes; I11.0 Hypertensive heart disease with heart failure; I50.9 Heart failure, unspecified; K21.9 Gastro-esophageal reflux disease without esophagitis; M89.49 Other hypertrophic osteoarthropathy, multiple sites; J43.1 Panlobular emphysema; E88.09 Other disorders of plasma-protein metabolism, not elsewhere classified; R79.89 Other specified abnormal findings of blood chemistry; Z20.822 Contact with and (suspected) exposure to COVID-19; F17.210 Nicotine dependence, cigarettes, uncomplicated; Z71.6 Tobacco abuse counseling; Z95.818 Presence of other cardiac implants and grafts
CPT/HCPCS: 36415; 71046; 80053; 82550; 82553; 83036; 83605; 83735; 83880; 84484; 85025; 85379; 85610; 85730; 90686; 93005; 96374; 96376; 99217; 99219; 99285-25; A9270-GY; G0008; G0378; J3490; U0002

== ENCOUNTER 2021-07-14 16:22 | Emergency (ER) | payer BC ==
[2021-07-14 17:31] LABS: RESPIRATORY SYNCYTIAL VIR NAA NEGATIVE (NEGATIVE)
[2021-07-15 06:10] LABS: CORONAVIRUS COVID-19 NAA POSITIVE (NEGATIVE)
== END 2021-07-14 18:00 | disposition home or self-care (01) ==
LOC: LL.ED 16:22 → SUPCPDRO 16:22 → LL.ED 18:00
DX: U07.1 COVID-19 (principal); I10 Essential (primary) hypertension; I25.2 Old myocardial infarction; F17.210 Nicotine dependence, cigarettes, uncomplicated; Z79.82 Long term (current) use of aspirin
CPT/HCPCS: 0241U; 87081; 87430; 99283

== ENCOUNTER 2022-06-08 14:56 | Emergency (ER) | payer BC ==
[2022-06-08] MEDS ORDERED: Sodium Chloride 0.9% 10 ML Syringe FLUSH PRN (15:47)
[2022-06-08 16:21] LABS: ANION GAP 8.8 meq/L (7-15); CHLORIDE,CL 101 mmol/L (98-107); SODIUM,NA 136 mmol/L (136-145)
[2022-06-08 16:22] LABS: ESTIMATED GFR 40 mL/min (>=60)
[2022-06-08] MEDS: Sodium Chloride 0.9% 1,000 ML IV ONE (16:57)
[2022-06-08 17:14] LABS: CORONAVIRUS COVID-19 NAA NEGATIVE (NEGATIVE); RESPIRATORY SYNCYTIAL VIR NAA NEGATIVE (NEGATIVE)
[2022-06-08] MEDS: Metoprolol Succinate 25 MG Tab.ER PO ONE (18:59)
[2022-06-08] MEDS: traMADol 50 MG Tab PO ONE (19:00)
== END 2022-06-08 18:50 | disposition home or self-care (01) ==
LOC: LL.ED 14:56
DX: J10.1 Influenza due to other identified influenza virus with other respiratory manifestations (principal); I12.9 Hypertensive chronic kidney disease with stage 1 through stage 4 chronic kidney disease, or unspecified chronic kidney disease; N18.9 Chronic kidney disease, unspecified; J44.9 Chronic obstructive pulmonary disease, unspecified; I25.2 Old myocardial infarction; F17.210 Nicotine dependence, cigarettes, uncomplicated; Z79.899 Other long term (current) drug therapy; Z20.822 Contact with and (suspected) exposure to COVID-19
CPT/HCPCS: 0241U; 36415; 74019; 80053; 81001; 83605; 85025; 96360; 99283; 99284-25; A9270-GY; J7030